=== PATIENT | female | born 1940 | race Caucasian/White ===

== ENCOUNTER 2019-11-24 10:59 | Day surgery (SDC) | payer OTHER ==
[2019-11-24] MEDS ORDERED: HYDROCODONE-AC1 EAC1 PO (13:54)
[2019-11-24] MEDS ORDERED: PRAVASTATIN SOD20 MG PO (13:55)
[2019-11-24] MEDS ORDERED: PRINIVIL10 MG PO (13:55)
[2019-11-24] MEDS ORDERED: Potassium Chlo20 ME1 PO (13:56)
[2019-11-24] MEDS ORDERED: NEURONTIN300 MG PO (13:56)
[2019-11-24] MEDS ORDERED: ALLOPURINOL100 M1 PO (13:56)
[2019-11-24] MEDS ORDERED: FAMO20 PO (13:58)
== END 2019-11-24 14:00 | disposition home or self-care (01) ==
LOC: ATC 10:59
DX: C34.01 Malignant neoplasm of right main bronchus (principal); I10 Essential (primary) hypertension; E78.5 Hyperlipidemia, unspecified
CPT/HCPCS: 99212

== ENCOUNTER 2020-01-17 12:42 | Emergency (ER) | payer MEDICARE ==
[~2020-01-17] VITALS: Ht 162.6 cm; Wt 63.5 kg
[~2020-01-17 12:42] MED LIST: AMOCLA500 PO; BENZ100A PO; Cymbalta20 MG PO; DIPH50 PO; FAMO20 PO; GUAIFEN-CODEIN118 ML PO; METR500 PO; NEURONTIN300 MG PO; PRINIVIL10 MG PO
[2020-01-17 13:12] LABS: BASOPHILS ABSOLUTE AUTO 0.01 K/mm3 (0.00-0.23); BASOPHILS PERCENT AUTO 0 % (0-2); EOSINOPHILS PERCENT AUTO 1 % (0-6); Hemoglobin 10.5 g/dL (11.5-16.0); IMMATURE GRAN ABSOLUTE AUTO 0.02 K/mm3 (0.00-0.10); IMMATURE GRAN PERCENT AUTO 0 % (0-1); LYMPHOCYTES ABSOLUTE AUTO 1.29 K/mm3 (0.84-5.20); LYMPHOCYTES PERCENT AUTO 17 % (21-46); MONOCYTES ABSOLUTE AUTO 0.85 K/mm3 (0.16-1.47); MONOCYTES PERCENT AUTO 11 % (4-13); Mean Corpuscular HGB 32.6 pg (26.0-34.0); Mean Corpuscular HGB Conc 31.8 g/dL (31.5-36.5); Mean Corpuscular Volume 103 fL (80-100); Mean Platelet Volume 10.3 fL (9.1-12.4); NEUTROPHILS ABSOLUTE AUTO 5.34 K/mm3 (1.96-9.15); NEUTROPHILS PERCENT AUTO 70 % (41-73); Platelet Count 215 K/mm3 (150-400); RDW Coefficient Variation 15.7 % (11.7-14.2); Red Blood Cell Count 3.22 M/mm3 (3.80-5.20); White Blood Cell Count 7.61 K/mm3 (4.00-11.30)
[2020-01-17 13:43] LABS: Alanine Aminotransfer (ALT/SGP 11 U/L (12-78); Albumin, Blood 2.6 g/dL (3.4-5.0); Albumin/Globulin Ratio 0.6 (0.8-1.8); Alk Phos 99 U/L (50-136); Anion Gap 6 mmol/L (6-16); Aspartate Aminotrans (AST/SGOT 19 U/L (12-37); Bilirubin, Total 0.3 mg/dL (0.1-1.0); Blood Urea Nitrogen 7 mg/dL (8-24); Bun/Creatinine Ratio 13.5 (12.0-20.0); CO2, Blood 29 mmol/L (21-32); Calcium, Blood 9.1 mg/dL (8.5-10.1); Chloride, Blood 102 mmol/L (98-108); Creatinine, Blood 0.52 mg/dL (0.40-1.00); Globulin, Blood 4.1 g/dL (2.2-4.0); Glomerular Filtration Rate >60 (60-); Glucose, Blood 113 mg/dL (70-99); Potassium, Blood 3.9 mmol/L (3.5-5.5); Sodium, Blood 137 mmol/L (136-145); Total Protein, Blood 6.7 g/dL (6.4-8.2)
[2020-01-17 14:02] LABS: Source, Urine Clean Catch
[2020-01-17 14:24] LABS: Bilirubin, Urine Neg (Neg); Blood, Urine 1+ (Neg); Glucose Qualitative, Urine Neg (Neg); Ketones, Urine 2+ (Neg); Leukocyte Esterase, Urine Neg (Neg); Nitrite, Urine Neg (Neg); Protein, Urine Neg (Neg); Urobilinogen, Urine NORM (Normal)
[2020-01-17 14:42] LABS: Appearance, Urine Clear (Clear); Color, Urine Yellow (P-Yellow)
[2020-01-17 14:44] LABS: Bacteria Few /hpf; Mucus Mod (0-Heavy); Squamous Epithelial Cells Mod /hpf (Few); White Blood Cells, Urine Not Seen /hpf (0-5)
== END 2020-01-17 16:05 | disposition home or self-care (01) ==
LOC: ER 12:42
PROVIDERS: Emergency Medicine
DX: R55 Syncope and collapse (principal); J90 Pleural effusion, not elsewhere classified; R09.02 Hypoxemia; Z79.899 Other long term (current) drug therapy; Z79.2 Long term (current) use of antibiotics; J44.9 Chronic obstructive pulmonary disease, unspecified; E78.5 Hyperlipidemia, unspecified; Z87.891 Personal history of nicotine dependence; Z85.118 Personal history of other malignant neoplasm of bronchus and lung; Z92.3 Personal history of irradiation; Z92.21 Personal history of antineoplastic chemotherapy
CPT/HCPCS: 36415; 71046; 80053; 81001; 85025; 93005; 93010; 96360; 99285-25; J7030

== ENCOUNTER 2020-02-13 20:27 | Inpatient (IN) | payer MEDICARE, OTHER ==
[~2020-02-13] VITALS: Ht 157.5 cm; Wt 62.6 kg
[2020-02-13] MEDS ORDERED: ALLOPURINOL100 M1 PO (20:58)
[2020-02-13] MEDS ORDERED: PRED20 PO (20:58)
[2020-02-13 21:00] LABS: Calcium, Ionized (POC) 1.14 mmol/L (1.10-1.46); Chloride (POC) 94 mmol/L (98-108); Creatinine (POC) 0.5 mg/dL (0.6-1.0); Glucose (ISTAT POC) 128 mg/dL (70-99); Hemoglobin (POC) 9.2 g/dL (12.0-16.0); Potassium (POC) 3.8 mmol/L (3.5-5.5); Sodium (POC) 129 mmol/L (135-148); Total CO2 (POC) 24 mmol/L (21-32)
[2020-02-13] MEDS ORDERED: XARELTO20 M1 PO (21:00)
[2020-02-13] MEDS ORDERED: ALPRAZOLAM0.5 M1 PO (21:00)
[2020-02-13] MEDS ORDERED: Cymbalta20 MG PO (21:01)
[2020-02-13] MEDS ORDERED: MEMANTINE HCL5 MG PO (21:02)
[2020-02-13] MEDS ORDERED: PANT40 PO (21:03)
[2020-02-13] MEDS ORDERED: Potassium Chlo20 ME1 PO (21:03)
[2020-02-13] MEDS ORDERED: PRAVASTATIN SOD20 MG PO (21:04)
[2020-02-13] MEDS ORDERED: Ventolin/Prove6.7 GM INH (21:05)
[2020-02-13 21:10] LABS: BASOPHILS ABSOLUTE AUTO 0.01 K/mm3 (0.00-0.23); BASOPHILS PERCENT AUTO 0 % (0-2); EOSINOPHILS PERCENT AUTO 0 % (0-6); Hematocrit 25.9 % (33.0-51.0); Hemoglobin 8.7 g/dL (11.5-16.0); IMMATURE GRAN ABSOLUTE AUTO 0.14 K/mm3 (0.00-0.10); IMMATURE GRAN PERCENT AUTO 1 % (0-1); LYMPHOCYTES ABSOLUTE AUTO 0.71 K/mm3 (0.84-5.20); LYMPHOCYTES PERCENT AUTO 4 % (21-46); MONOCYTES ABSOLUTE AUTO 1.29 K/mm3 (0.16-1.47); MONOCYTES PERCENT AUTO 8 % (4-13); Mean Corpuscular HGB 34.3 pg (26.0-34.0); Mean Corpuscular HGB Conc 33.6 g/dL (31.5-36.5); Mean Corpuscular Volume 102 fL (80-100); Mean Platelet Volume 9.9 fL (9.1-12.4); NEUTROPHILS ABSOLUTE AUTO 13.89 K/mm3 (1.96-9.15); NEUTROPHILS PERCENT AUTO 87 % (41-73); Platelet Count 196 K/mm3 (150-400); RDW Coefficient Variation 15.3 % (11.7-14.2); RDW Standard Deviation 56.9 fL (35.1-46.3); Red Blood Cell Count 2.54 M/mm3 (3.80-5.20); White Blood Cell Count 16.04 K/mm3 (4.00-11.30)
[2020-02-13 21:37] LABS: Alanine Aminotransfer (ALT/SGP 15 U/L (12-78); Albumin, Blood 2.8 g/dL (3.4-5.0); Albumin/Globulin Ratio 0.8 (0.8-1.8); Alk Phos 70 U/L (50-136); Anion Gap 8 mmol/L (6-16); Aspartate Aminotrans (AST/SGOT 18 U/L (12-37); Bilirubin, Total 0.3 mg/dL (0.1-1.0); Blood Urea Nitrogen 14 mg/dL (8-24); Bun/Creatinine Ratio 23.6 (12.0-20.0); CO2, Blood 26 mmol/L (21-32); Calcium, Blood 8.6 mg/dL (8.5-10.1); Chloride, Blood 98 mmol/L (98-108); Creatinine, Blood 0.59 mg/dL (0.40-1.00); Globulin, Blood 3.4 g/dL (2.2-4.0); Glomerular Filtration Rate >60 (60-); Glucose, Blood 130 mg/dL (70-99); Potassium, Blood 3.8 mmol/L (3.5-5.5); Sodium, Blood 132 mmol/L (136-145); Total Protein, Blood 6.2 g/dL (6.4-8.2)
[2020-02-13] MEDS ORDERED: HYDR1TAB94 PO (22:09)
[2020-02-13] MEDS ORDERED: BENZ100A PO (22:10)
[2020-02-13] MEDS ORDERED: CENTRUM SILVER1 EAC2 PO (22:11)
[2020-02-13] MEDS ORDERED: CALCIUM 600 +1 EA11 PO (22:11)
[2020-02-13] MEDS ORDERED: MAGNESIUM OXID500 MG PO (22:11)
[2020-02-13] MEDS ORDERED: PROC5 PO (22:12)
[2020-02-13] MEDS ORDERED: ONDA4ODT SL (22:14)
[2020-02-14 05:32] LABS: Hematocrit 33.9 % (33.0-51.0); Hemoglobin 11.6 g/dL (11.5-16.0)
[2020-02-14 05:58] LABS: Alanine Aminotransfer (ALT/SGP 13 U/L (12-78); Albumin, Blood 2.7 g/dL (3.4-5.0); Albumin/Globulin Ratio 0.8 (0.8-1.8); Alk Phos 68 U/L (50-136); Anion Gap 4 mmol/L (6-16); Aspartate Aminotrans (AST/SGOT 13 U/L (12-37); Bilirubin, Total 1.8 mg/dL (0.1-1.0); Blood Urea Nitrogen 11 mg/dL (8-24); Bun/Creatinine Ratio 18.8 (12.0-20.0); CO2, Blood 33 mmol/L (21-32); Calcium, Blood 9.1 mg/dL (8.5-10.1); Chloride, Blood 104 mmol/L (98-108); Creatinine, Blood 0.58 mg/dL (0.40-1.00); Globulin, Blood 3.2 g/dL (2.2-4.0); Glomerular Filtration Rate >60 (60-); Glucose, Blood 86 mg/dL (70-99); Potassium, Blood 3.5 mmol/L (3.5-5.5); Sodium, Blood 141 mmol/L (136-145); Total Protein, Blood 5.9 g/dL (6.4-8.2)
--- NOTE | 2020-02-14 06:22 | NUR ---
PATIENT ADMITTED FROM THE ED. INFUSED 2 UNITS OF PRBC PER ORDER. PATIENT ALSO RECEIVING GOLYTELY 2000ML. SHE IS ABLE TO DRINK MOST OF IT BUT WAS NAUSEATED AND THREW UP A GOOD AMOUNT. SHE CONTINUED AFTER ZOFRAN ADMINISTRATION AND STARTED HAVING FREQUENT BOWEL MOVEMENTS WHICH WENT FROM CLEAR TO RED WITH SMALL CHUNKS OF BROWN STOOL. SHE IS COMPLAINING OF NAUSEA AGAIN WHICH SHE SAYS HAS STOPPED HER ABILITY TO FINISH HER GOLYTELY REGIMEN. ZOFRAN NOT AVAILABLE TO GIVE UNTIL 7:30AM. CALL LIGHT WITHIN REACH, WILL CONTINUE TO MONITOR UNTIL END OF SHIFT
--- NOTE | 2020-02-14 10:26 | NUR ---
POLST - IN PATIENT CHART HAS FULL CODE MARKED. LIMITED AND FULL TREATMENT IS MARKED; CLARIFIED WITH PATIEINT AND DAUGHTER; PT WANTED FULL TREATMENT. PROVIDED NEW POLST TO PATIENT AND DAUGHTER TO COMPLETED.
[2020-02-14 14:11] LABS: Hematocrit 34.2 % (33.0-51.0); Hemoglobin 11.8 g/dL (11.5-16.0)
--- NOTE | 2020-02-14 17:02 | NUR ---
Patient states colon prep results clear. History, Chart, Medications and Allergies reviewed before start of procedure. Patient confirms NPO status and agrees with scheduled surgery. Pre-Op teaching done. Pt verbalizes understanding.
--- NOTE | 2020-02-14 17:14 | NUR ---
02/14/20 1714 NICOLAS ADLER History, Chart, Medications and Allergies reviewed before start of procedure. 3-LEAD EKG REVIEWED WITH PHYSICIAN PRIOR TO START OF PROCEDURE. MONITOR INTACT WITH CONTINUOUS PULSE OXIMETRY AND INTERMITTENT BP. O2 VIA N/C INTACT THROUGHOUT SEDATION/PROCEDURE. MAC WITH DR. BUENO.
--- NOTE | 2020-02-14 18:07 | NUR ---
SHIFT SUMMARY PT A&Ox4; CALM AND COOPERATIVE WITH CARE. PT RESTING IN BED; 1 PERSON ASSIT TO BSC. PT SOB WITH EXERTION; SPO2>90% ON 4L O2 VIA NC (HOME DOSE). PT DENIES PAIN, CHEST PAIN/PRESSURE, NASUEA AND DIZZINESS. COLONOSCOPY COMPLETED THIS AFTERNOON; PER DR JAIME OK TO EAT REGULAR DIET AND RESUME ANTICOAGULENT; DR WILCOX NOTIFIED. VENOUS DUPLEX THIS AFTERNOON; RESULTS NOTIFIED TO DR WILCOX AND MESSAGE LEFT FOR DR VARGAS. VSS. NO OTHER ACUTE CHANGES NOTED DURING SHIFT. WILL CONTINUE TO MONITOR UNITL REPORT GIVEN TO ONCOMING RN.
[2020-02-14 21:15] LABS: Hematocrit 30.6 % (33.0-51.0); Hemoglobin 10.5 g/dL (11.5-16.0)
[2020-02-14 22:28] LABS: International Normalized Ratio 1.06; Prothrombin Time Results 11.3 Sec (9.7-11.5)
[2020-02-15 04:30] LABS: BASOPHILS ABSOLUTE AUTO 0.01 K/mm3 (0.00-0.23); BASOPHILS PERCENT AUTO 0 % (0-2); EOSINOPHILS PERCENT AUTO 0 % (0-6); Hematocrit 29.7 % (33.0-51.0); Hemoglobin 9.9 g/dL (11.5-16.0); IMMATURE GRAN ABSOLUTE AUTO 0.05 K/mm3 (0.00-0.10); IMMATURE GRAN PERCENT AUTO 0 % (0-1); LYMPHOCYTES ABSOLUTE AUTO 0.42 K/mm3 (0.84-5.20); LYMPHOCYTES PERCENT AUTO 4 % (21-46); MONOCYTES ABSOLUTE AUTO 0.58 K/mm3 (0.16-1.47); MONOCYTES PERCENT AUTO 5 % (4-13); Mean Corpuscular HGB 31.9 pg (26.0-34.0); Mean Corpuscular HGB Conc 33.3 g/dL (31.5-36.5); NEUTROPHILS ABSOLUTE AUTO 10.49 K/mm3 (1.96-9.15); NEUTROPHILS PERCENT AUTO 91 % (41-73); Platelet Count 147 K/mm3 (150-400); RDW Coefficient Variation 17.1 % (11.7-14.2); RDW Standard Deviation 59.8 fL (35.1-46.3); White Blood Cell Count 11.55 K/mm3 (4.00-11.30)
[2020-02-15 04:41] LABS: Mean Corpuscular Volume 96 fL (80-100)
[2020-02-15 04:51] LABS: Anion Gap 6 mmol/L (6-16); Blood Urea Nitrogen 13 mg/dL (8-24); Bun/Creatinine Ratio 26.6 (12.0-20.0); CO2, Blood 29 mmol/L (21-32); Calcium, Blood 8.6 mg/dL (8.5-10.1); Chloride, Blood 104 mmol/L (98-108); Creatinine, Blood 0.49 mg/dL (0.40-1.00); Glomerular Filtration Rate >60 (60-); Glucose, Blood 101 mg/dL (70-99); Potassium, Blood 3.7 mmol/L (3.5-5.5); Sodium, Blood 139 mmol/L (136-145)
--- NOTE | 2020-02-15 04:56 | NUR ---
SHIFT SUMMARY PT A&O; PLEASANT & COMPLIANT W/ CARE; VSS; DENIES CHEST PAIN; O2 SATS >93 ON 4L NC; PT STATES BASELINE; HEP GTT @ 15/U/KG; LR INFUSING; TYLENOL ADMINISTERED 1X FOR C/O HEADACHE; ICE PACK OFFERED; PT SLEPT SEVERAL HOURS IN BETWEEN INTERVENTIONS; CALL LIGHT IN REACH; BED IN LOWEST POSITION; WILL CONTINUE TO MONITOR CLOSELY UNTIL HAND OFF TO DAY SHIFT RN.
--- NOTE | 2020-02-15 07:35 | NUR ---
ASSUMED CARE: PT RESTING IN BED AT THIS TIME. HEPARIN GTT RUNNING AND DOSE VERIFIED WITH NIGHT RN. NO ACUTE NEEDS OR CONCERNS AT THIS TIME.
--- NOTE | 2020-02-15 08:50 | NUR ---
ATTEMPTED TO VISIT pt to review and complete an updated POLST form. She is sound asleep and did not respond to voice. Will return later today.
--- NOTE | 2020-02-15 14:58 | NUR ---
Spiritual care visit conducted. Patient tells me about her medical conditions, her family support system and her concerns going forward. Patient is tearful at times but explains that she has a personal bashir that she is not comfortable talking about. Patient states that she would allow for me to say a prayer for her which I gladly provide. Patient verbalizes appreciation for the prayer and shows signs of an elevated mood. I will continue to assist patient in talking through the emotional and spiritual aspects of the medical issues she is dealing with.
--- NOTE | 2020-02-15 15:13 | NUR ---
I have been by a number of times today and unable to meet/talk with pt. I did note newly completed POLST on front of chart that pt and chelsie completed and Dr has signed. Copies made and sent to medical records. Pt desires FULL CODE and FULL treatment at this time to include, CPR and intubation per her designations on the POLST form. Garment Inspector was able to visit with pt earlier today and we will cont to follow and visit as needed. Our referral was for POLST completion and that has been done.
--- NOTE | 2020-02-15 18:08 | NUR ---
SHIFT SUMMARY: PT REMAINS ON HEPARIN GTT FOR DVT AND PE. DR VARGAS CAME TO SEE PT AND ORDERED ECHO. ECHO RESULT COMPLETED AND DR VARGAS CAME BACK TO SEE PT AND DAUGHTER. PLAN IS TO PLACE FILTER FOR DVT. DR VARGAS AWARE THAT PT ATE DINNER THIS EVENING.
--- NOTE | 2020-02-15 19:03 | NUR ---
PT TAKEN TO [facility] FOR PROCEDURE BY [facility] STAFF
[2020-02-16 01:00] LABS: Mean Platelet Volume 9.7 fL (9.1-12.4); Platelet Count 135 K/mm3 (150-400)
--- NOTE | 2020-02-16 07:00 | NUR ---
ASSUMED CARE: PT RESTING QUIETLY. NSR ON TELE. NO ACUTE NEEDS OR CONCERNS AT THIS TIME.
[2020-02-16 08:38] LABS: BASOPHILS PERCENT AUTO 0 % (0-2); EOSINOPHILS PERCENT AUTO 0 % (0-6); Hematocrit 31.4 % (33.0-51.0); Hemoglobin 10.4 g/dL (11.5-16.0); IMMATURE GRAN ABSOLUTE AUTO 0.03 K/mm3 (0.00-0.10); IMMATURE GRAN PERCENT AUTO 0 % (0-1); LYMPHOCYTES PERCENT AUTO 6 % (21-46); MONOCYTES ABSOLUTE AUTO 0.61 K/mm3 (0.16-1.47); MONOCYTES PERCENT AUTO 9 % (4-13); Mean Corpuscular HGB Conc 33.1 g/dL (31.5-36.5); Mean Corpuscular Volume 100 fL (80-100); Mean Platelet Volume 9.6 fL (9.1-12.4); NEUTROPHILS ABSOLUTE AUTO 6.09 K/mm3 (1.96-9.15); NEUTROPHILS PERCENT AUTO 85 % (41-73); Platelet Count 133 K/mm3 (150-400); RDW Coefficient Variation 16.3 % (11.7-14.2); RDW Standard Deviation 59.3 fL (35.1-46.3); Red Blood Cell Count 3.15 M/mm3 (3.80-5.20); White Blood Cell Count 7.13 K/mm3 (4.00-11.30)
[2020-02-16] MEDS ORDERED: ACET325 PO (11:07)
[2020-02-16] MEDS ORDERED: SENN187 PO (11:08)
--- NOTE | 2020-02-16 13:51 | NUR ---
IV'S DC'D WNL AND TELE REMOVED. INSTRUCTIONS FOR DC GIVEN TO PT AND DAUGHTER. PT ESCORTED OUT VIA HOSPITAL STAFF.
== END 2020-02-16 13:10 | disposition home or self-care (01) | DRG 356 ==
LOC: ER 20:27 → ERHOLD 21:10 → PCU 21:10
PROVIDERS: Internal Medicine; Internal Medicine Gastroenterology; Physician Assistant; ADMIT Internal Medicine
PROC: 30233N1 Transfusion of Nonautologous Red Blood Cells into Peripheral Vein, Percutaneous Approach (ICD-10-PCS; 2020-02-14)
PROC: 0DJD8ZZ Inspection of Lower Intestinal Tract, Via Natural or Artificial Opening Endoscopic (ICD-10-PCS; principal; 2020-02-14 16:15)
PROC: 06H03DZ Insertion of Intraluminal Device into Inferior Vena Cava, Percutaneous Approach (ICD-10-PCS; 2020-02-15)
DX: K57.31 Diverticulosis of large intestine without perforation or abscess with bleeding (principal); I26.99 Other pulmonary embolism without acute cor pulmonale; D62 Acute posthemorrhagic anemia; I82.411 Acute embolism and thrombosis of right femoral vein; K64.8 Other hemorrhoids; Z20.828 Contact with and (suspected) exposure to other viral communicable diseases; K63.5 Polyp of colon; I95.9 Hypotension, unspecified; Z85.118 Personal history of other malignant neoplasm of bronchus and lung; Z85.841 Personal history of malignant neoplasm of brain; J44.9 Chronic obstructive pulmonary disease, unspecified; Z99.81 Dependence on supplemental oxygen; Z79.01 Long term (current) use of anticoagulants; E78.5 Hyperlipidemia, unspecified; J84.10 Pulmonary fibrosis, unspecified; M10.9 Gout, unspecified
CPT/HCPCS: 36415; 36430; 37191; 71045; 71260; 80047; 80048; 80053; 85014; 85018; 85025; 85049; 85610; 85730; 86850; 86900; 86901; 86923; 93005; 93010; 93306; 93970; 94760; 99285-25; A9270; C1769; C1880; C9113; J1644; J2704; J7030; J7120; J7512; P9016; Q9967; U0002

== ENCOUNTER 2020-04-20 10:25 | Inpatient (IN) | payer MEDICARE ==
[~2020-04-20] VITALS: Ht 157.5 cm; Wt 59.8 kg
[~2020-04-20 10:25] MED LIST changes: +ACET325 PO; +ALLOPURINOL100 M1 PO; +ALPRAZOLAM0.5 M1 PO; +CALCIUM 600 +1 EA11 PO; +CENTRUM SILVER1 EAC2 PO; +HYDR1TAB94 PO; +MAGNESIUM OXID500 MG PO; +MEMANTINE HCL5 MG PO; +ONDA4ODT SL; +PANT40 PO; +PRAVASTATIN SOD20 MG PO; +PRED20 PO; +PROC5 PO; +Potassium Chlo20 ME1 PO; +SENN187 PO; +Ventolin/Prove6.7 GM INH; +XARELTO20 M1 PO
[2020-04-20 12:01] LABS: BASOPHILS ABSOLUTE AUTO 0.01 K/mm3 (0.00-0.23); BASOPHILS PERCENT AUTO 0 % (0-2); EOSINOPHILS ABSOLUTE AUTO 0.07 K/mm3 (0.00-0.68); EOSINOPHILS PERCENT AUTO 1 % (0-6); Hematocrit 30.4 % (33.0-51.0); Hemoglobin 9.9 g/dL (11.5-16.0); IMMATURE GRAN ABSOLUTE AUTO 0.17 K/mm3 (0.00-0.10); IMMATURE GRAN PERCENT AUTO 1 % (0-1); LYMPHOCYTES ABSOLUTE AUTO 0.61 K/mm3 (0.84-5.20); LYMPHOCYTES PERCENT AUTO 5 % (21-46); MONOCYTES PERCENT AUTO 5 % (4-13); Mean Corpuscular HGB 33.9 pg (26.0-34.0); Mean Corpuscular HGB Conc 32.6 g/dL (31.5-36.5); Mean Corpuscular Volume 104 fL (80-100); Mean Platelet Volume 9.9 fL (9.1-12.4); NEUTROPHILS ABSOLUTE AUTO 11.71 K/mm3 (1.96-9.15); NEUTROPHILS PERCENT AUTO 89 % (41-73); Platelet Count 131 K/mm3 (150-400); RDW Coefficient Variation 16.4 % (11.7-14.2); RDW Standard Deviation 62.2 fL (35.1-46.3); Red Blood Cell Count 2.92 M/mm3 (3.80-5.20); White Blood Cell Count 13.17 K/mm3 (4.00-11.30)
[2020-04-20 12:10] LABS: International Normalized Ratio 1.22; Prothrombin Time Results 12.9 Sec (9.7-11.5)
[2020-04-20 12:16] LABS: Alanine Aminotransfer (ALT/SGP 34 U/L (12-78); Albumin, Blood 2.9 g/dL (3.4-5.0); Albumin/Globulin Ratio 0.8 (0.8-1.8); Alk Phos 95 U/L (50-136); Anion Gap 5 mmol/L (6-16); Aspartate Aminotrans (AST/SGOT 43 U/L (12-37); Bilirubin, Total 0.9 mg/dL (0.1-1.0); Blood Urea Nitrogen 15 mg/dL (8-24); Bun/Creatinine Ratio 27.1 (12.0-20.0); CO2, Blood 31 mmol/L (21-32); Chloride, Blood 102 mmol/L (98-108); Creatinine, Blood 0.55 mg/dL (0.40-1.00); Globulin, Blood 3.5 g/dL (2.2-4.0); Glomerular Filtration Rate >60 (60-); Glucose, Blood 134 mg/dL (70-99); Potassium, Blood 3.7 mmol/L (3.5-5.5); Sodium, Blood 138 mmol/L (136-145); Total Protein, Blood 6.4 g/dL (6.4-8.2)
[2020-04-20] MEDS ORDERED: STIOLTO RESPIMAT4 G1 INH (12:53)
[2020-04-20] MEDS ORDERED: METOPROLOL TART25 MG PO (12:53)
[2020-04-20 13:10] LABS: PCO2 Arterial 41.8 mmHg (35-45); PO2 Arterial 166 mmHg (80-100); pH Blood Arterial 7.46 (7.35-7.45)
[2020-04-21 03:34] LABS: BASOPHILS ABSOLUTE AUTO 0.02 K/mm3 (0.00-0.23); BASOPHILS PERCENT AUTO 0 % (0-2); EOSINOPHILS PERCENT AUTO 0 % (0-6); Hematocrit 28.4 % (33.0-51.0); Hemoglobin 9.1 g/dL (11.5-16.0); IMMATURE GRAN ABSOLUTE AUTO 0.17 K/mm3 (0.00-0.10); IMMATURE GRAN PERCENT AUTO 1 % (0-1); LYMPHOCYTES ABSOLUTE AUTO 0.33 K/mm3 (0.84-5.20); LYMPHOCYTES PERCENT AUTO 2 % (21-46); MONOCYTES ABSOLUTE AUTO 0.53 K/mm3 (0.16-1.47); MONOCYTES PERCENT AUTO 3 % (4-13); Mean Corpuscular HGB 33.1 pg (26.0-34.0); Mean Corpuscular Volume 103 fL (80-100); Mean Platelet Volume 10.1 fL (9.1-12.4); NEUTROPHILS ABSOLUTE AUTO 15.98 K/mm3 (1.96-9.15); NEUTROPHILS PERCENT AUTO 94 % (41-73); Platelet Count 136 K/mm3 (150-400); RDW Coefficient Variation 16.6 % (11.7-14.2); RDW Standard Deviation 62.8 fL (35.1-46.3); Red Blood Cell Count 2.75 M/mm3 (3.80-5.20); White Blood Cell Count 17.03 K/mm3 (4.00-11.30)
[2020-04-21 03:51] LABS: Alanine Aminotransfer (ALT/SGP 25 U/L (12-78); Albumin, Blood 2.5 g/dL (3.4-5.0); Albumin/Globulin Ratio 0.7 (0.8-1.8); Alk Phos 90 U/L (50-136); Anion Gap 7 mmol/L (6-16); Aspartate Aminotrans (AST/SGOT 31 U/L (12-37); Bilirubin, Total 0.7 mg/dL (0.1-1.0); Blood Urea Nitrogen 13 mg/dL (8-24); Bun/Creatinine Ratio 29.6 (12.0-20.0); CO2, Blood 24 mmol/L (21-32); Calcium, Blood 8.2 mg/dL (8.5-10.1); Chloride, Blood 107 mmol/L (98-108); Creatinine, Blood 0.44 mg/dL (0.40-1.00); Globulin, Blood 3.4 g/dL (2.2-4.0); Glomerular Filtration Rate >60 (60-); Glucose, Blood 138 mg/dL (70-99); Magnesium, Blood 2.3 mg/dL (1.6-2.4); Phosphorus, Blood 2.6 mg/dL (2.5-4.9); Potassium, Blood 4.2 mmol/L (3.5-5.5); Sodium, Blood 138 mmol/L (136-145); Total Protein, Blood 5.9 g/dL (6.4-8.2)
[2020-04-21 12:47] LABS: Source, Urine Catheter
[2020-04-21 12:50] LABS: Bilirubin, Urine Neg (Neg); Blood, Urine 3+ (Neg); Glucose Qualitative, Urine Neg (Neg); Ketones, Urine 3+ (Neg); Leukocyte Esterase, Urine Neg (Neg); Nitrite, Urine Neg (Neg); Protein, Urine 2+ (Neg); Specific Gravity, Urine 1.025 (1.003-1.022); Urobilinogen, Urine NORM (Normal)
[2020-04-21 13:03] LABS: Appearance, Urine Hazy (Clear); Color, Urine Yellow (P-Yellow)
[2020-04-21 13:06] LABS: Squamous Epithelial Cells Rare /hpf (Few)
[2020-04-21 13:07] LABS: Bacteria Few /hpf; WBC Cast Rare /lpf (0); Yeast/Fungi Urine Rare /hpf
== END 2020-04-22 07:23 | DRG 871 ==
LOC: ER 10:25 → ICUW 14:04 → ICUE 14:04
PROVIDERS: Emergency Medicine; Family Medicine; Nurse Practitioner Acute Care; ADMIT Family Medicine
PROC: 5A09357 Assistance with Respiratory Ventilation, Less than 24 Consecutive Hours, Continuous Positive Airway Pressure (ICD-10-PCS; principal; 2020-04-20)
DX: A41.9 Sepsis, unspecified organism (principal); J96.21 Acute and chronic respiratory failure with hypoxia; J18.9 Pneumonia, unspecified organism; C79.31 Secondary malignant neoplasm of brain; F02.81 Dementia in other diseases classified elsewhere, unspecified severity, with behavioral disturbance; C34.90 Malignant neoplasm of unspecified part of unspecified bronchus or lung; J98.11 Atelectasis; I27.82 Chronic pulmonary embolism; J44.0 Chronic obstructive pulmonary disease with (acute) lower respiratory infection; J70.1 Chronic and other pulmonary manifestations due to radiation; T17.590A Other foreign object in bronchus causing asphyxiation, initial encounter; Z51.5 Encounter for palliative care; Z20.828 Contact with and (suspected) exposure to other viral communicable diseases; Z87.891 Personal history of nicotine dependence; Z99.81 Dependence on supplemental oxygen; Z86.718 Personal history of other venous thrombosis and embolism; G30.9 Alzheimer's disease, unspecified; F41.9 Anxiety disorder, unspecified; K21.9 Gastro-esophageal reflux disease without esophagitis; F32.9 Major depressive disorder, single episode, unspecified; E78.5 Hyperlipidemia, unspecified; M10.9 Gout, unspecified; D69.6 Thrombocytopenia, unspecified; D63.8 Anemia in other chronic diseases classified elsewhere; Z66 Do not resuscitate
CPT/HCPCS: 36415; 36600; 51702; 71045; 71260; 80053; 81001; 82803; 83605; 83735; 83880; 84100; 84145; 85025; 85610; 85730; 87040; 93005; 93010; 94640; 94660; 96365; 96376; 99285-25; A9270-GY; C1751; J0282; J0456; J0692; J0696; J2270; J2930; J3010; J3370; J3475; J3480; J7030; J7050; J7060; Q9967; U0004